=== PATIENT | female | born 1995 | race Caucasian/White ===

== ENCOUNTER 2017-04-27 12:34 | Emergency (ER) | payer BC ==
[~2017-04-27] VITALS: Ht 157.5 cm; Wt 57.0 kg
[2017-04-27 12:35] VITALS: BP 108/66; TEMP 36.9; Ht 157.5 cm; Wt 57.0 kg
--- NOTE | 2017-04-27 13:08 | DIAGNOSTIC IMAGING REPORT ---
LEFT FOOT 3 VIEWS HISTORY: Left foot pain, possible trauma COMPARISON: None. FINDINGS: There is no fracture or dislocation. Soft tissues are unremarkable. No radiopaque foreign bodies. IMPRESSION: No fractures. Electronically signed by: Cole Hughes M.D. 04/27/2017 1:07 PM Dictated Date/Time: 04/27/2017 1:06 PM
[2017-04-27] MEDS ORDERED: BCPILLS PO (13:29)
--- NOTE | 2017-04-27 13:31 | EMERGENCY ROOM VISIT NOTE ---
ED Visit Note First contact with patient: 12:46 CHIEF COMPLAINT: Left foot injury earlier this morning HISTORY OF PRESENT INJURY: Patient is a 22-year-old white female who presents to the emergency department for evaluation of left foot pain after an injury last evening. She was out for her 22st birthday and admits that she was intoxicated. She was wearing a shoe that had a low heel, but she states that the strap broke, and believes that her foot twisted. She noted pain in the lateral aspect of the left foot when she woke up this morning. She essentially came directly to the emergency department. She did not take or do anything for her symptoms. She rates her pain a 7/10. She reports that she dropped something heavy on her foot a couple of months ago, and had x-rays performed a couple of weeks later which showed a healing fracture in the second metatarsal. She denies any ankle pain. REVIEW OF SYSTEMS: Review of systems as per HPI. All other systems reviewed were negative. At least 6 systems reviewed. PMH: Electronic medical records are reviewed and summarized as above/below. See Problem List. SOCIAL HISTORY: The patient lives at home. [employer] student. Nonsmoker. PHYSICAL EXAM: Vital Signs: Reviewed Nurse's notes. GENERAL: Well-appearing 22- year-old white female who is awake and alert and in no acute distress. Ankle/ Foot: Examination of the left lower extremity notes a very superficial abrasion noted on the tip of the left fourth toe. There is slight dorsal lateral soft tissue swelling of the foot, she is tender over the fifth metatarsal. Ankle is nontender to palpation, no soft tissue swelling is appreciated. Range of motion is full. Lisfranc joint is negative. She does not have any pain along the first metatarsal or the great toe. Left lower extremity is neurovascularly intact. EMERGENCY DEPARTMENT COURSE: Left foot x-rays were obtained and negative for acute fracture. She was placed in a postoperative shoe and issued crutches. I suspect she has a sprain of her foot. Fracture and contusion were also considered. Conservative care measures were discussed. Medication reconciliation: I attest that I have personally reviewed the patient' s current medication list. Blood pressure screening : Patient was found to have normal blood pressure on screening and does not require follow-up. LEFT FOOT 3 VIEWS HISTORY: Left foot pain, possible trauma COMPARISON: None. FINDINGS: There is no fracture or dislocation. Soft tissues are unremarkable. No radiopaque foreign bodies. IMPRESSION: No fractures. Current/Historical Medications Scheduled Control Pills ( Control Pills), 1 TAB PO DAILY Allergies Coded Allergies: Doxycycline (Unverified Allergy, Unknown, ., 04/27/17) Vital Signs Date Time Temp Pulse Resp B/P (MAP) Pulse Ox O2 Delivery O2 Flow Rate FiO2 04/27/17 13:57 82 16 97 04/27/17 12:35 36.9 89 18 108/66 100 Room Air Departure Information Impression Primary Impression: Sprain of left foot Referrals No Doctor, Assigned (PCP) Patient Instructions My [facility] Additional Instructions Ibuprofen(Motrin, Advil) may be used for fever or pain. Use 600mg every six hours as needed. Take with food. Avoid using more than 2400mg in a 24 hour period. Do not use 2400mg per day for more than three consecutive days without physician direction. Prolonged inappropriate use can lead to stomach upset or ulcers. This medication can be taken if you need to drive, work, or perform activities which may be dangerous when taking narcotic pain medication. (AND/OR) Acetaminophen(Tylenol) may be used for fever or pain. Use 1000mg every six hours as needed. Avoid using more than 3000mg in a 24 hour period. This medication can be taken if you need to drive, work, or perform activities which may be dangerous when taking narcotic pain medication. Ice compresses for 20 minutes at a time four times daily for 2-3 days. Use the postoperative shoe and crutches as instructed. Rest and elevate your injury. Continue current medications. Return to the ER immediately for any numbness, tingling, severe pain, extreme swelling in the extremity or as needed. Followup with your family doctor or orthopedic surgery if no improvement in 5-7 days.
[2017-04-27 13:57] VITALS: PULSE 82; O2SAT 97
== END 2017-04-27 14:00 | disposition home or self-care (01) ==
LOC: C.EDB 12:35 → C.EDD 14:00
DX: S93.602A Unspecified sprain of left foot, initial encounter (principal); X50.1XXA Overexertion from prolonged static or awkward postures, initial encounter; Y92.9 Unspecified place or not applicable